=== PATIENT | male | born 1965 | race Caucasian/White ===

== ENCOUNTER 2020-06-22 09:11 | Observation (INO) ==
[~2020-06-22 09:11] MED LIST: BUPIVACAINE HCL/EPINEPHRINE 50 ML VIAL IJ PRN; RINGER'S SOLUTION,LACTATED 1,000 ML IV PRN; ceFAZolin SODIUM 1 GM VIAL IV PRN
--- NOTE | 2020-06-22 10:09 | ANES ---
Anesthesia Pre Procedure Eval Vitals/Labs: Last Vital Signs Temp 36.6 C 06/22/20 09:15 Pulse 98 06/22/20 09:15 Resp 16 06/22/20 09:15 BP 129/81 06/22/20 09:15 Pulse Ox 98 06/22/20 09:15 HOME MEDICATIONS Glycopyrrolate 2 mg PO DAILY 06/17/20 [Last Taken Unknown] Terazosin HCl 5 mg PO DAILY 06/17/20 [Last Taken Unknown] Allergies/Adverse Reactions: Allergies Allergy/AdvReac Type Severity Reaction Status Date / Time Penicillins Allergy Hives Verified 06/22/20 09:33 - Planned Procedure Planned Procedure: Peg Tube Insertion Medication List Reviewed:: Yes Allergies Verified: Yes Medical History (Last Reviewed 06/22/20 @ 10:08 by Alexander Barrow CRNA) Ascending paralysis (Chronic) And progressive. ALS (amyotrophic lateral sclerosis) Diverticulosis Onset Date: Unknown Hernia Onset Date: Unknown Surgical History (Last Reviewed 06/22/20 @ 10:08 by Alexander Barrow CRNA) H/O colonoscopy Onset Date: ~1994 History of hernia repair Onset Date: Unknown right History of nasal surgery Onset Date: Unknown History of tonsillectomy Onset Date: Unknown [place] teeth extracted Onset Date: Unknown Family History (Last Reviewed 06/22/20 @ 10:08 by Alexander Barrow CRNA) Father , age 70's-stroke Dementia CVA (cerebral vascular accident) Mother , age 70's-lupes Cancer ovarian ca Brother Diabetes type 1 Sister Alive and well 2 sisters Other Myocardial infarction - Family Anesthesia History Family History:: no untoward family reactions to anesthesia, no familial bleeding tendencies, no family history of clotting disorders, no family history of premature - Airway/Neck/Teeth Within Normal Limits:: No - limited jaw extension Teeth Condition: intact Mallampatti Score: 4 Thyromental (T-M) distance: > 6 cm Mandibulo Hyoid distance: > 3 cm - Respiratory Respiratory Physical: lungs clear Smoking Status: Never smoker Discussed smoking cessation including day of surgery: No Sleep Apnea currently treated: No Sleep Apnea by current assessment: No Discussed Risks/Treatment of TENNILLE: No - Cardiovascular Tolerate Activity: Poor Heart Sounds: S1 & S2, Regular - Gastrointestinal NPO since: mn - Anesthesia Assessment and Plan ASA Class: PS, IV Anesthesia Type Plan: General ET
[2020-06-22] MEDS ORDERED: NEOSTIGMINE METHYLSULFATE 1 MG/ML VIAL ONE (10:24)
[2020-06-22] MEDS ORDERED: fentaNYL CITRATE/PF 50 MCG/ML AMPUL ONE (10:24)
[2020-06-22] MEDS ORDERED: LIDOCAINE HCL 20 ML VIAL ONE (10:24)
[2020-06-22] MEDS ORDERED: ONDANSETRON HCL/PF 2 MG/ML VIAL ONE (10:24)
[2020-06-22] MEDS ORDERED: SUCCINYLCHOLINE CHLORIDE 20 MG/ML VIAL ONE (10:25)
[2020-06-22] MEDS ORDERED: ROCURONIUM BROMIDE 10 MG/ML VIAL ONE (10:25)
[2020-06-22] MEDS ORDERED: GLYCOPYRROLATE 0.2 MG/ML VIAL ONE (10:25)
[2020-06-22] MEDS ORDERED: PROPOFOL VIAL IV ONE (10:25)
[2020-06-22] MEDS ORDERED: ceFAZolin SODIUM 1 GM VIAL ONE (10:41)
[2020-06-22] MEDS ORDERED: BUPIVACAINE HCL/EPINEPHRINE 50 ML VIAL ONE (10:42)
--- NOTE | 2020-06-22 12:55 | ANES ---
Post Anesthesia Assessment - Vital Signs Vitals: Last Vital Signs Temp 36.1 C 06/22/20 12:45 Pulse 98 06/22/20 12:45 Resp 18 06/22/20 12:45 BP 130/83 06/22/20 12:45 Pulse Ox 98 06/22/20 12:45 Airway Patency: Normal - Mental Status Level Of Consciousness: Awake - Pain Level Pain Score: 0 - N/V Assessment Nausea/Vomiting Presence: None Dehydration:: No
--- NOTE | 2020-06-22 12:55 | ANES ---
Post Anesthesia Discharge - Transfer of Care Transfer of Care handoff given to nurse: Yes - Discharge from PACU Discharge from PACU when meets criteria: Yes - Discharge to ASU Discharge to ASU-no complications/pt stable: Yes
--- NOTE | 2020-06-22 13:08 | OR ---
Operative Report - Dictated Report Narrative: Operative Report Date of operation: 06/22/2020 Preoperative diagnosis: Malnutrition, dehydration, inability to swallow, ALS Postoperative diagnosis: Same . Normal-appearing esophagus, stomach, and duodenum (CLOtest pending) Operation: EGD with biopsy. Placement of PEG tube Surgeon: Dr Ahuja Anesthesia: MAC general endotracheal Alexander Barrow CRNA Indications for procedure: The patient is a 55-year-old male with ALS. He has lost 30 pounds over the last several months due to inability to swallow without aspiration. He has been to the emergency room and the [facility] for IV fluid administration due to dehydration. Findings: Normal-appearing esophagus, stomach and duodenum. CLOtest pending Narrative of procedure: The patient was identified preoperatively, and prior to the administration of anesthetic a multidisciplinary timeout was observed With the patient in the recumbent position, glide scope assisted endotracheal intubation was performed and general endotracheal anesthetic administered. The anterior abdominal wall was clipped and prepped with chlorhexidine. The projected tube insertion site was isolated with sterile drape. The flexible fiberoptic gastroscope was advanced into the posterior pharynx which appeared normal. The endotracheal tube was seen to be in good position. The supraglottic larynx appeared normal. The scope was advanced under direct vision into the proximal esophagus which appeared normal. The esophagus appeared freely distensible with normal mucosa. The esophageal mucosa appeared normal down to the gastroesophageal junction which was sharp and noninflamed. The GE junction appeared normally distensible. The scope was advanced into the stomach which was insufflated with air. The gastric mucosa appeared essentially normal with exception of 2 very small fundic gland polyps. A retroflexed view of the gastric fundus revealed no additional lesions. The scope was redirected toward the pylorus. The pylorus appeared patent. The scope was advanced into the duodenal bulb which appeared normal. The scope was advanced further to the horizontal portion of the duodenum which appeared normal, specifically the villous architecture appeared well preserved and clear bile was present. The scope was slowly withdrawn through the duodenal bulb with confirmation that no active ulcer was present. The scope was withdrawn into the stomach and sales representative graphic art biopsy of gastric mucosa obtained for CLOtest. The biopsy site was seen to be hemostatic. A point was chosen on the anterior abdominal wall for tube insertion using digital palpation and transillumination. The area was infiltrated with 0.5% Marcaine with epinephrine. The stomach was accessed under direct vision with an Angiocath. A wire was then placed through this into the stomach, grasped with an endoscopic snare and withdrawn through the mouth in conjunction with the gastroscope. The PEG tube was then secured to the wire and pulled down through the mouth into the stomach and snugged against the anterior abdominal wall. The skin incision was enlarged slightly with an 11 blade to allow free passage of the tube. The tube was then trimmed and capped. It was found to be secure against the anterior abdominal wall with the bolster at the 3 cm kayleen. A dressing of Bactroban ointment and split 2 x 2's was placed. The patient tolerated the anesthetic and procedure well without complication. He was transferred to the recovery room awake extubated and in stable condition. The patient remained stable throughout a period of postoperative observation, was able to tolerate po intake. I shared the operative findings with him and his , and they were given copies of the photographs which appear in the medical record. He was discharged home with verbal and written instructions which included numbers to call for questions or concerns. The tube may be used for water flushes today. He may resume clear liquids by mouth today and advance diet as tolerated tomorrow. Tube feedings may begin tomorrow. He is to continue medications as listed in the history and physical exam. I made arrangements to contact the patient with the rafael-test report, and a return office appointment was made for 1 week Reviewed and electronically signed
[2020-06-22] MEDS ORDERED: GLYCOPYRROLATE 0.2 MG/ML VIAL IM ONE ×2 (15:23→15:26)
[2020-06-22] MEDS ORDERED: RINGER'S SOLUTION,LACTATED 1,000 ML IV PRN (15:58)
[2020-06-22] MEDS: ACETAMINOPHEN 500 MG TABLET PO PRN (17:09)
[2020-06-23] MEDS: ACETAMINOPHEN 500 MG TABLET PO PRN (08:34)
--- NOTE | 2020-06-23 09:46 | DS ---
Date of Discharge:: 06/23/20 Hospital Course: He was brought for placement of a PEG tube due to malnutrition and dehydration secondary to inability swallow from ALS. The procedure was completed without complication. Just prior to discharge, however he did develop difficulty handling secretions with a tenuous airway. Despite suctioning it was clear he was not safe for discharge to home, and he was placed in observation status for monitoring, supplemental O2, suctioning if needed, and administration of glycopyrrolate. By the next morning his breathing was back to baseline, his vital signs were stable, his tube site appeared to be healing well. He required only Tylenol for discomfort. He is discharged home. His has instructions for PEG tube care and administration of Osmolite 1.26 cans daily. He is to resume his usual medications as listed in the history and physical exam. He may use Tylenol or ibuprofen as needed for discomfort. They have phone numbers to call for questions or concerns and a return office appointment will be made for 1 week Procedures Performed: see notes below - Insertion percutaneous endoscopic gastrostomy tube (PEG tube) Results and Findings: Lab Pending Results 06/22/20 12:09: Pathology Specimen Spec to path Discharge Location: Home Disposition: Home self-care Condition: Stable Discharge Activity: Activity as tolerated Discharge Diet: Resume usual diet, Other - Osmolite 1.2 tube feedings 6 cans/day Referrals: Roberto Garcia DO [Primary Care Provider] - Problem Oriented Discharge Instructions to Patient/Family: PEG Tube Home Guide, [id number], Percutaneous Endoscopic Jejunostomy, Care After Additional Patient Instructions (free text): Follow up appointment with Dr Ahuja 06/30/20 at 1:[address] Ahuja with any questions or concerns at [phone]. Complete Home Medications List: Complete Home Medication List: Glycopyrrolate 2 mg PO DAILY 06/17/20 Terazosin HCl 5 mg PO DAILY 06/17/20 Acetaminophen [Tylenol] 1,000 mg PO Q6H PRN tablet 06/23/20 Nutritional Supplement [Osmolite 1.2 Bryn] 1 ea FEEDING TUBE .Q4 30 Days #237 ml 06/23/20 Forms: Patient Portal Registration
[2020-06-23 10:23] VITALS: BP 112/79
== END 2020-06-23 10:50 | disposition home or self-care (01) ==
LOC: MS 09:11 → SUR 09:11
PROVIDERS: ADMIT Surgery; ATTEND Surgery
DX: G12.21 Amyotrophic lateral sclerosis; E46 Unspecified protein-calorie malnutrition; R06.03 Acute respiratory distress; R13.19 Other dysphagia; Z68.22 Body mass index [BMI] 22.0-22.9, adult; E86.0 Dehydration

== ENCOUNTER 2020-06-30 14:36 | Observation (INO) ==
[2020-06-30] MEDS ORDERED: [UNRECOGNIZED DRUG - OTHER] GT SCH (15:00)
[2020-06-30] MEDS ORDERED: NUTRITIONAL SUPPLEMENT GT SCH (15:00)
[2020-06-30] MEDS ORDERED: MAGNESIUM HYDROXIDE 30 ML UDC PEG ONE (16:45)
[2020-06-30] MEDS: DEXTROSE 5%-0.5 NORMAL SALINE 1,000 ML IV PRN ×2 (16:48→21:32)
[2020-06-30] MEDS: AZITHROMYCIN 250 MG TABLET PO SCH (16:57)
[2020-06-30] MEDS ORDERED: ENOXAPARIN SODIUM 40 MG/0.4 ML SYRG SC SCH (17:00)
[2020-06-30 17:45] LABS: Urine Bilirubin Negative (NEGATIVE); Urine Blood Negative /ul (NEGATIVE); Urine Ketone Negative (NEGATIVE); Urine Nitrite Negative (NEGATIVE); Urine Protein 15 mg/dL (NEGATIVE); Urine Urobilinogen Normal (NORMAL); Urine pH 8.5 pH (5.0-7.0)
[2020-06-30 18:06] LABS: Urine Appearance Cloudy (CLEAR); Urine Color Yellow
[2020-06-30 18:07] LABS: Urine Amorphous Sediment Few - 1+ (NONE-FEW); Urine Bacteria 4+; Urine RBC TRACE /hpf (0-5)
[2020-06-30] MEDS: [UNRECOGNIZED DRUG - OTHER] GT SCH (18:18)
[2020-06-30] MEDS: NUTRITIONAL SUPPLEMENT GT SCH (18:18)
--- NOTE | 2020-06-30 18:35 | HP ---
Chief Complaint - Chief Complaint Date of Service: 06/30/20 Time of Service: 15:00 Chief Complaint: Fever, weakness, urinary retention, ALS advanced History of Present Illness: Who has a history of ALS which has progressed rapidly the last couple of months. He was seen in the emergency room and admitted and had a PEG tube placed by Dr. Ahuja last week. Since then he has been getting his foods and fluids and medications through the PEG tube which has worked very well. He spiked a fever today and has become much more weak and and lethargic. He has tachycardia and tachypnea. Dr. Ahuja called me and I came to see Paramjit in his office. He has some coarse breath sounds on the right posteriorly. He is essentially nonverbal with me. He appears dry. He has had difficulty urinating. He was straight cathed last week and there was 700 cc residual. He will be bladder scanned to see how much urine is being retained. He is also constipated and has not had a BM in 5 days. Medical History (Last Reviewed 06/30/20 @ 15:39 by Teodoro Alvarez RN) Ascending paralysis (Chronic) And progressive. ALS (amyotrophic lateral sclerosis) Diverticulosis Onset Date: Unknown Hernia Onset Date: Unknown Surgical History: Surgical History (Last Reviewed 06/30/20 @ 15:39 by Teodoro Alvarez RN) History of percutaneous endoscopic gastrostomy Onset Date: 06/22/20 Bagan-PEG tube placement H/O colonoscopy Onset Date: ~1994 History of esophagogastroduodenoscopy (EGD) Onset Date: 06/22/20 06/22/20 Bagan-clotest negative History of hernia repair Onset Date: Unknown right History of nasal surgery Onset Date: Unknown History of tonsillectomy Onset Date: Unknown [place] teeth extracted Onset Date: Unknown Family History: Family History (Last Reviewed 06/30/20 @ 15:39 by Teodoro Alvarez RN) Father , age 70's-stroke Dementia CVA (cerebral vascular accident) Mother , age 70's-lupes Cancer ovarian ca Brother Diabetes type 1 Sister Alive and well 2 sisters Other Myocardial infarction Social History: (Last Reviewed 06/30/20 @ 15:40 by Teodoro Alvarez RN) Social History: Marital status: household members: spouse number of children: 4 current occupational status: disabled Service: No Tobacco: Smoking Status: Never smoker Alcohol: alcohol intake: former Substance Use: substance use type: does not use Dietary Habits: caffeine: No Personal Safety: victim of physical abuse: No victim of emotional abuse: No Review Of Systems (GEN) - Review of Systems Generalized/Overall Review: Present: Weakness, Fever, Malaise, Fatigue, Weight loss EENTM: Present: Other - Difficulty swallowing in the oral pharyngeal phase Respiratory: Present: Other - Breathing more rapidly than usual Cardiac: Present: Other - Rapid heart rate Abdominal: Present: Other - he has a new and functioning PEG tube. Genitourinary: Present: Retention, Dysuria Neurological: Present: Weakness Skin: Present: No Symptoms Reported, Dryness, Other - Decreased turgor Endocrine: Present: No Symptoms Reported Immunizations: IMMUNIZATION HX Immunizations Up to Date Yes Allergies/Adverse Reactions: Allergies Allergy/AdvReac Type Severity Reaction Status Date / Time Penicillins Allergy Hives Verified 06/30/20 15:40 Home Medications: HOME MEDICATIONS Terazosin HCl 5 mg PO DAILY 06/17/20 [Last Taken Unknown] Acetaminophen [Tylenol] 1,000 mg PO Q6H PRN tab 06/23/20 [Last Taken Unknown] Nutritional Supplement [Osmolite 1.2 Bryn] 1 ea FEEDING TUBE .Q4 30 Days #237 ml 06/23/20 [Last Taken Unknown] Amitriptyline HCl [Elavil] 25 mg PO DAILY 06/30/20 [Last Taken 06/30/20 09:00] Exam - Exam Vital Signs: Vital Signs - Last Taken Temp 37.8 C 06/30/20 17:40 Pulse 114 H 06/30/20 17:40 Resp 20 06/30/20 17:40 BP 131/86 06/30/20 17:40 Pulse Ox 97 06/30/20 17:40 Constitutional: Present: Alert, Oriented x3, Cooperative, Well developed, Middle aged, Thin and frail ENT Exam: Present: normal ENT inspection, hearing grossly normal, pharynx normal, TMs normal Eye Exam: bilateral eye: normal inspection, PERRL, EOMI Neck: Present: non-tender, supple, limited range of motion Back Exam: Present: normal inspection, no CVA tenderness, no vertebral tenderness Respiratory: Present: chest non-tender, no accessory muscle use, decreased breath sounds, rhonchi Cardiovascular/Chest: Present: normal peripheral pulses, regular rate, rhythm, no chest tenderness, no edema, no gallop, no JVD, no murmur, no rub, tachycardia - Heart rate of 120 Abdomen: Present: Normal bowel sounds, soft, nontender, nondistended, no rebound tenderness, no hepatospenomegaly, no masses Extremity: Present: non-tender, normal inspection, no pedal edema, no calf tenderness, normal capillary refill Skin Exam: Present: normal color, warm/dry, no cyanosis Lymphatic: Present: no adenopathy 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 Absent: normal speech Thoughts: Present: normal thought pattern, no apparent hallucination Diagnostic Studies: Abnormal Lab Results 06/30/20 Range/Units 16:27 Urine Protein 15 H (NEGATIVE) mg/dL Urine WBC 5-10 H (0-5) /hpf Urine Bacteria 4+ H (NONE) Laboratory Results Urine Color Yellow 06/30/20 16:27 Urine Appearance Cloudy (CLEAR) 06/30/20 16:27 Urine pH 8.5 pH (5.0-7.0) 06/30/20 16:27 Ur Specific [place] 1.020 SP.GR. (1.005-1.030) 06/30/20 16:27 Urine Protein 15 mg/dL (NEGATIVE) H 06/30/20 16:27 Urine Glucose (UA) Negative mg/dL (NEGATIVE) 06/30/20 16:27 Urine Ketones Negative mg/dL (NEGATIVE) 06/30/20 16:27 Urine Blood Negative /ul (NEGATIVE) 06/30/20 16:27 Urine Nitrate Negative (NEGATIVE) 06/30/20 16:27 Urine Bilirubin Negative mg/dl (NEGATIVE) 06/30/20 16:27 Prot Sulfosalicylic Acd Negative mg/dL (0) 06/30/20 16:27 Urine Urobilinogen Normal EU/dl (NORMAL) 06/30/20 16:27 Ur Leukocyte Esterase Negative /ul (NEGATIVE) 06/30/20 16:27 Urine RBC Trace /hpf (0-5) 06/30/20 16:27 Urine WBC 5-10 /hpf (0-5) H 06/30/20 16:27 Ur Epithelial Cells Trace /hpf (0-5) 06/30/20 16:27 Amorphous Sediment Few - 1+ (NONE-FEW) 06/30/20 16:27 Urine Bacteria 4+ (NONE) H 06/30/20 16:27 Assessment/Plan - Narrative Narrative: 1. Establish peripheral IV and give 2 L of D5 half-normal saline at 250 cc/h 2. Start Rocephin and azithromycin after cultures are drawn 3. Milk of magnesia per PEG tube for constipation 4. Bladder scan for residual and cath as necessary 5. Urine culture and blood cultures 6. Continuous cardiac monitoring - Assessment/Plan (1) Febrile illness Problem: Acute (2) Urinary retention Problem: Acute (3) Constipation Problem: Acute Qualifiers: Constipation type: slow transit constipation Qualified Code(s): K59.01 - Slow transit constipation (4) ALS (amyotrophic lateral sclerosis) Problem: Chronic (5) Dehydration Problem: Acute (6) Ascending paralysis Problem: Chronic
[2020-06-30] MEDS ORDERED: ALBUTEROL SULFATE/IPRATROPIUM 3 ML NEBU IH PRN (18:56)
[2020-06-30] MEDS ORDERED: ACETAMINOPHEN 500 MG TABLET PO PRN (19:01)
[2020-06-30 19:16] LABS: Albumin * 3.2 gm/dl (3.4-5.0); Anion Gap 9.1 mmol/L (6.8-13.8); BUN/Creatinine Ratio 29.6 (9.0-21.6); Bilirubin, Total 0.6 mg/dL (0.0-1.1); Ca. Corrected For Albumin 9.7 mg/dL (8.4-10.2); Calcium * 9.4 mg/dL (7.9-10.9); Carbon Dioxide 32.4 mmol/L (24-32.6); Potassium 4.5 mmol/L (3.4-4.6); Total Protein 6.1 gm/dL (6.2-8.2)
[2020-06-30 19:19] LABS: Hematocrit 45.5 % (42.0-52.0); Hemoglobin 14.1 gm/dL (13.5-18.0); Mean Cell Volume 91.7 fl (78-100); Mean Corpuscular Hemoglobin 28.4 pg (27-31); Mean Platelet Volume 9.9 fl (8-11.3); Neutrophil # 14.5 K/mm3 (1.3-6.0); Platelet Count 317 K/mm3 (150-450); Red Blood Count 4.96 M/mm3 (4.7-6.0); Red Cell Distribution Width 13.7 % (11.5-14.0); White Blood Count 20.7 K/mm3 (4.0-10.5)
[2020-06-30] MEDS: GLYCOPYRROLATE 0.2 MG/ML VIAL IV PRN (19:36)
[2020-06-30] MEDS ORDERED: AMITRIPTYLINE HCL 25 MG TABLET PO SCH (20:00)
[2020-06-30] MEDS ORDERED: TERAZOSIN HCL 5 MG CAPSULE PO SCH (21:00)
[2020-07-01] MEDS: GLYCOPYRROLATE 0.2 MG/ML VIAL IV PRN ×2 (03:22→08:18)
[2020-07-01] MEDS: AZITHROMYCIN 250 MG TABLET PO SCH (08:19)
[2020-07-01] MEDS: [UNRECOGNIZED DRUG - OTHER] GT SCH (08:20)
[2020-07-01] MEDS: NUTRITIONAL SUPPLEMENT GT SCH (08:20)
--- NOTE | 2020-07-01 08:44 | CONS ---
HPI - General Date of Service: 06/30/20 Source: patient, family, RN/MD, RN notes reviewed, old records Exam Limitations: clinical condition - History of Present Illness Timing/Duration: getting worse Associated Symptoms: fever/chills, other - Cannot urinate increased secretions Allergies/Adverse Reactions: Allergies Penicillins Allergy (Verified 06/30/20 15:40) Hives Home Medications: Home Medications Medication Instructions Recorded Last Taken Terazosin HCl 5 mg PO DAILY 06/17/20 Unknown Acetaminophen [Tylenol] 1,000 mg PO Q6H PRN tab 06/23/20 Unknown Nutritional Supplement [Osmolite 1 ea FEEDING TUBE .Q4 30 Days #237 06/23/20 Unknown 1.2 Bryn] ml Amitriptyline HCl [Elavil] 25 mg PO DAILY 06/30/20 06/30/20 09:00 Medications - Medications Current Medications: Current Medications Acetaminophen (Tylenol) 500 mg PO Q4H PRN PRN Reason: Fever Stop: 07/30/20 19:02 Last Admin: 06/30/20 20:02 Dose: 500 mg Documented by: Albuterol/Ipratropium (Duoneb 2.5-0.5mg/3ml Soln) 3 ml IH Q4H PRN PRN Reason: Secretions Stop: 07/30/20 18:57 Last Admin: 06/30/20 21:17 Dose: 3 ml Documented by: Azithromycin (Zithromax) 250 mg PO DAILY HUNTER; Protocol Stop: 07/03/20 09:01 Last Admin: 07/01/20 08:19 Dose: 250 mg Documented by: Enoxaparin Sodium (Lovenox) 40 mg SC Q24H HUNTER Stop: 07/30/20 17:01 Last Admin: 06/30/20 16:57 Dose: 40 mg Documented by: Glycopyrrolate (Robinul) 0.2 mg IV Q4H PRN PRN Reason: Secretions Stop: 07/30/20 19:01 Last Admin: 07/01/20 08:18 Dose: 0.2 mg Documented by: Dextrose/Sodium Chloride (Dextrose 5%-0.45%Ns) 1,000 mls @ 250 mls/hr IV .Q4H PRN PRN Reason: HYDRATION Last Infusion: 07/01/20 01:31 Dose: Infused Documented by: Ceftriaxone Sodium 1,000 mg/ (Dextrose/Water) 100 mls @ 200 mls/hr IV Q24H [facility]; Protocol Stop: 07/30/20 16:01 Last Infusion: 06/30/20 18:22 Dose: Infused Documented by: Glycopyrrolate 2 Mg 2 mg PO DAILY HUNTER Stop: 07/31/20 09:01 Last Admin: 07/01/20 08:20 Dose: Not Given Documented by: Non-Formulary Medication (Nutritional Supplement [Osmolite 1.2 Bryn]) 2 ea GT TID HUNTER Stop: 07/30/20 17:46 Last Admin: 07/01/20 08:20 Dose: 2 ea Documented by: Terazosin HCl (Hytrin) 5 mg PO HS HUNTER Stop: 07/30/20 21:01 Last Admin: 06/30/20 20:02 Dose: 5 mg Documented by: Review of Systems - Review of Systems Generalized/Overall Review: Present: Fever EENTM: Present: Other - Cannot clear secretions Respiratory: Present: Other - Increased work of breathing Cardiac: Absent: Chest Pain Abdominal: Present: Other - PEG tube is functioning well. Absent: Abdominal Pain Genitourinary: Present: Frequency, Retention Neurological: Present: Other - Quadriparetic, stable Skin: Present: Other - Several areas of breakdown on the buttocks Physical Examination - Exam Vital Signs: Vital Signs - Last Taken Temp 37.1 C 06/30/20 15:48 Pulse 120 06/30/20 15:48 Resp 24 06/30/20 15:48 BP 121/80 06/30/20 15:48 Pulse Ox 95 06/30/20 15:48 O2 Oxygen Delivery Method room air Constitutional: Present: Oriented x3, Moderate distress, Somnolent ENT Exam: Present: normal ENT inspection, other - Flushed trouble clearing secretions Eye Exam: bilateral eye: normal inspection Neck: Present: normal inspection Respiratory: Present: decreased breath sounds, other - Shallow respirations Cardiovascular/Chest: Present: regular rate, rhythm, tachycardia, other - Jugular veins collapse with inspiration Abdomen: Present: soft, nontender, other - PEG tube site healthy Skin Exam: Present: normal color, other - Diaphoretic Neurologic: Present: other - Quadriparetic, can use right forearm and signal thumbs up Eye contact: Present: other - Somnolent but arouses and makes eye contact Thoughts: Present: normal thought pattern, no apparent hallucination - Results and Findings: Lab/Microbiology results last 24 hrs: Abnormal/Pending Laboratory Last 24 HRS 06/30/20 06/30/20 06/30/20 16:27 16:09 16:09 WBC 20.7 H MCHC 31.0 L Immature Gran % (Auto) 0.70 H Immature Gran # (Auto) 0.15 H Neutrophils # 14.5 H Lymphocytes # 4.73 H Monocytes # 1.3 H Est GFR (Non-Af Amer) 167 H D BUN/Creatinine Ratio 29.6 H Total Protein 6.1 L Albumin 3.2 L Urine Protein 15 H Urine WBC 5-10 H Urine Bacteria 4+ H - Assessments/Findings (1) Constipation Diagnosis(s): He has not moved his bowels for 4 or 5 days. Could administer laxative through PEG tube Problem: Acute Qualifiers: Constipation type: slow transit constipation Qualified Code(s): K59.01 - Slow transit constipation (2) Febrile illness Diagnosis(s): He has increased work of breathing, however the urinalysis and his symptoms of frequency and incomplete emptying suggest UTI Problem: Acute (3) Urinary retention Diagnosis(s): The Robinul does help with his secretions however makes it more difficult for him to urinate. Should consider intermittent clean catheterization at home Problem: Acute (4) ALS (amyotrophic lateral sclerosis) Diagnosis(s): He has progressed rapidly. I discussed his case with the ALS service at the [facility]. We are trying to arrange a visit there. There are multiple crucial conversations about end-of-life decisions that would benefit from their expertise and input. Questions of tracheostomy, urinary catheter/suprapubic tube I have discussed the case with Dr. Garcia and will continue to follow the patient Problem: Chronic
--- NOTE | 2020-07-01 08:49 | PN ---
Subjective - Date and Time Seen Date: 07/01/20 Time: 08:44 Subjective Narrative: He did not sleep at all last night, needing to urinate very frequently in small amounts. His breathing is much less labored after a breathing treatment and Robinul Objective Objective Narrative: He appears much more comfortable from a respiratory standpoint. He is less flushed. He and his are exhausted - Review of Systems Generalized/Overall Review: Denies: Chills, Fever EENTM: Reports: No Symptoms Reported, Other - Secretions improved Respiratory: Reports: Other - Breathing improved Abdominal: Reports: No Symptoms Reported Genitourinary Symptoms: Reports: Other - Voiding frequently small amounts Musculoskeletal Complaints: Reports: No Symptoms Reported Neurological: Reports: Other - Stable Skin: Reports: Other - Open areas on buttocks protected with Mepilex - Vitals Vitals: Last Vital Signs Temp 36.5 C 07/01/20 06:21 Pulse 99 07/01/20 06:21 Resp 20 07/01/20 06:21 BP 111/72 07/01/20 06:21 Pulse Ox 100 07/01/20 08:16 - Abnormal Lab Findings Abnormal Lab Findings: Abnormal Lab Results 06/30/20 06/30/20 06/30/20 Range/Units 16:09 16:09 16:27 WBC 20.7 H (4.0-10.5) K/mm3 MCHC 31.0 L (32-36) g/dl Immature Gran % (Auto) 0.70 H (0.001-0.429) % Immature Gran # (Auto) 0.15 H (0.000-0.0310) K/mm3 Neutrophils # 14.5 H (1.3-6.0) K/mm3 Lymphocytes # 4.73 H (1.5-3.5) k/mm3 Monocytes # 1.3 H (0.0-1.0) k/mm3 Est GFR (Non-Af Amer) 167 H D (60-130) mL/min BUN/Creatinine Ratio 29.6 H (9.0-21.6) Total Protein 6.1 L (6.2-8.2) gm/dL Albumin 3.2 L (3.4-5.0) gm/dl Urine Protein 15 H (NEGATIVE) mg/dL Urine WBC 5-10 H (0-5) /hpf Urine Bacteria 4+ H (NONE) - EKG/Xray Findings XRAY: chest Interpretation: Reviewed by me - Exam Constitutional: Present: Alert, Oriented x3, Cooperative, Other - Much more alert ENT Exam: Present: normal ENT inspection, other - Not as flushed Neck: Present: full range of motion Respiratory: Present: no respiratory distress Cardiovascular/Chest: Present: regular rate, rhythm Abdomen: Present: soft, nontender /Rectal: Present: Exam deferred Extremity: Present: other - Stable quadriparesis Skin Exam: Present: normal color, warm/dry Neurologic: Present: other - Stable quadriparesis Appearance: Present: appropriate insight Eye contact: Present: cooperative, good eye contact Thoughts: Present: normal thought pattern Assessment/Plan Plan Narrative: He appears overall improved. Will need to instruct the in intermittent catheterization - Problems/Diagnosis (1) Constipation Problem: Acute Qualifiers: Constipation type: slow transit constipation Qualified Code(s): K59.01 - Slow transit constipation Narrative: He received milk of magnesia, await results (2) Febrile illness Problem: Acute Narrative: He is receiving antibiotics and temperatures down (3) Urinary retention Problem: Acute Narrative: Intermittent catheterization would be appropriate (4) ALS (amyotrophic lateral sclerosis) Problem: Chronic Narrative: Will need to have some crucial conversations about end-of-life decisions and what measures they wish to pursue.
[2020-07-01] MEDS ORDERED: GLYCOPYRROLATE 2 MG PO SCH (09:00)
[2020-07-01] MEDS ORDERED: [UNRECOGNIZED DRUG - SUPPLY] SCH (10:30)
[2020-07-01 11:18] LABS: Urine Bilirubin Negative (NEGATIVE); Urine Ketone Negative (NEGATIVE); Urine Nitrite Negative (NEGATIVE); Urine Protein Negative (NEGATIVE); Urine Urobilinogen Normal (NORMAL); Urine pH 6.5 pH (5.0-7.0)
--- NOTE | 2020-07-01 11:30 | DS ---
(1) Febrile illness Problem: Acute (2) Urinary retention Problem: Acute (3) Constipation Problem: Acute Qualifiers: Constipation type: slow transit constipation Qualified Code(s): K59.01 - Slow transit constipation (4) ALS (amyotrophic lateral sclerosis) Problem: Chronic (5) Dehydration Problem: Acute (6) Ascending paralysis Problem: Chronic Date of Discharge:: 07/01/20 Hospital Course: Paramjit Pike is a 55-year-old male who had developed some urinary retention at home. He also had developed fever with a temperature of 39.1. He was in the hospital last week and had a PEG tube placed. He was dehydrated and needing medications and was unable to swallow because of his advancing ALS problems. The PEG tube has been functioning very well. He is also been having problems managing secretions. He had been using amitriptyline which had helped for some time but then seems to have lost its effectiveness. They have used Robinul in the past and it has been successful. I used that here last evening because he was having problems with mobilizing secretions. He still has diaphragmatic excursion but he is unable to take a deep breath or use secondary muscles of respiration. He has some adventitious rhonchi in the right posterior chest yesterday which has cleared. I gave him some breathing treatments and that with the Robinul has him much more comfortable this morning. He did have a restless night and did not sleep much. His Taisha has stayed here with him the entire time and she has not rested much either. She has been instructed on the proper sterile technique of doing straight catheterizations at home and initially she will do those 3 times a day and as needed. I have ordered catheters from [facility]. I also brought the subject of hospice and they were willing to have Neida visit with them about hospice. They may not be ready to exercise that but it will not be long in the future when they will need hospice and I would encourage them to do it sooner than later. He is going to need to make a decision about being trached and having event for a long period The initial CBC had a white count of 20,000. He usually has a mild leukocytosis of 12,000-15,000 range. Initial urinalysis was a voided specimen into a urinal. There is 4+ bacteria present but there is no supporting cast for UTI. I have had them straight cath him and will get a repeat urinalysis. I actually suspect his infection is not urinary tract but is probably lower respiratory even though the chest x-ray does not confirm. Because he is unable to take a deep breath lung volumes are small. There appears to be atelectasis in both bases but I suspect there is some harbored infection there. He was started on Rocephin and a azithromycin. He is afebrile this morning. His heart rate has dropped from 120 into the low 90s. His blood pressure is normal. He appears much more comfortable this morning and breathing without any difficulty. Procedures Performed: none Care Plan Goals: 1. Straight catheterizations 3 times daily approximately every 8 hours and as needed 2. Continue home antibiotics as prescribed 3. I will encourage them to bring hospice in sooner than later. There is loss of benefits that could be brought to bear on their behalf. 4. I have given Taisha my cell number so she can reach me at any time. 5. The next difficult decision they will have to make is tracheostomy and ventilator management. I will discuss that with them as well. Results and Findings: Lab Pending Results 06/30/20 16:09: WBC 20.7 H, RBC 4.96, Hgb 14.1, Hct 45.5, MCV 91.7, MCH 28.4, MCHC 31.0 L, RDW 13.7, Plt Count 317, MPV 9.9, Immature Gran % (Auto) 0.70 H, Immature Gran # (Auto) 0.15 H, Neutrophils % 70.0, Lymphocytes % 22.8, Monocytes % 6.4, Eosinophils % 0.0, Basophils % 0.1, Nucleated RBC % 0.0, Neutrophils # 14.5 H, Lymphocytes # 4.73 H, Monocytes # 1.3 H, Eosinophils # 0.0, Absolute Basophils 0.0 06/30/20 16:09: Sodium 138, Plasma Sodium 138, Potassium 4.5, Chloride 101, Carbon Dioxide 32.4, Anion Gap 9.1, BUN 16, Creatinine 0.54, Est GFR (Non-Af Am er) 167 H D, BUN/Creatinine Ratio 29.6 H, Random Glucose 103, Calcium 9.4, Calcium Adj for Albumin 9.7, Total Bilirubin 0.6, AST 31, ALT 41, Alkaline Phosphatase 105, Total Protein 6.1 L, Albumin 3.2 L 06/30/20 16:09: Lactic Acid, Venous 0.9 06/30/20 16:27: Urine Color Yellow, Urine Appearance Cloudy, Urine pH 8.5, Ur Specific [place] 1.020, Urine Protein 15 H, Urine Glucose (UA) Negative, Urine Ketones Negative, Urine Blood Negative, Urine Nitrate Negative, Urine Bilirubin Negative, Prot Sulfosalicylic Acd Negative, Urine Urobilinogen Normal, Ur Leukocyte Esterase Negative, Urine RBC Trace, Urine WBC 5-10 H, Ur Epithelial Cells Trace, Amorphous Sediment Few - 1+, Urine Bacteria 4+ H 06/30/20 19:47: SARS-CoV-2 (PCR) Not detected Discharge Location: Home Disposition: Home self-care Condition: Serious Discharge Activity: Activity as tolerated Discharge Diet: Tube Feedings Referrals: Roberto Garcia DO [Primary Care Provider] - Additional Patient Instructions (free text): I have ordered the catheters and the Robinul from the office side. Both were sent to [facility]. Prescriptions (Any new or edited meds): Azithromycin 200 mg PO DAILY 4 Days #20 susp.recon Transmission Status: Pending to [facility] Cefdinir 250 mg PO BID 10 Days #100 susp.recon Transmission Status: Pending to [facility] Complete Home Medications List: Complete Home Medication List: Terazosin HCl 5 mg PO DAILY 06/17/20 Acetaminophen [Tylenol] 1,000 mg PO Q6H PRN tab 06/23/20 Nutritional Supplement [Osmolite 1.2 Bryn] 1 ea FEEDING TUBE .Q4 30 Days #237 ml 06/23/20 Amitriptyline HCl [Elavil] 25 mg PO DAILY 06/30/20 Azithromycin 200 mg PO DAILY 4 Days #20 susp.recon 07/01/20 Azithromycin [Zithromax] 250 mg PO DAILY tab 07/01/20 Cefdinir 250 mg PO BID 10 Days #100 susp.recon 07/01/20 Glycopyrrolate 2 mg PO DAILY 07/01/20 catheter (coude) -Male 0 .ROUTE .MEDSUPPLY #100 ea 07/01/20 glycopyrrolate 1 mg/5 mL (0.2 mg/mL) oral solution 2 mg FEEDING TUBE .Every 6 hours PRN #473 ml 07/01/20
[2020-07-01 12:05] LABS: Urine Appearance Clear (CLEAR); Urine Bacteria TRACE; Urine Blood 5 /ul (NEGATIVE); Urine Color Yellow; Urine RBC TRACE /hpf (0-5)
[2020-07-01 12:55] VITALS: BP 115/76
[2020-07-01] MEDS ORDERED: AMITRIPTYLINE HCL 25 MG TABLET PO SCH (21:00)
== END 2020-07-01 12:51 | disposition home or self-care (01) ==
LOC: MS
PROVIDERS: ADMIT Family Medicine; ATTEND Family Medicine
DX: Z93.1 Gastrostomy status; K59.01 Slow transit constipation; R33.9 Retention of urine, unspecified; E86.0 Dehydration; G12.21 Amyotrophic lateral sclerosis; R50.9 Fever, unspecified